=== PATIENT | male | born 1995 | race Caucasian/White ===

== ENCOUNTER → 2018-02-16 | Outpatient (CLI) | payer BC, OTHER ==
[~2018-02-16] VITALS: Ht 185.4 cm; Wt 83.9 kg
[~2018-02-16] MED LIST: ACHD5005 PO; GADOBUTROL 7.5 MMOL/7.5 ML (GADAVIST) VIAL IV ONE; IOHEXOL 300 MG/ML 30 ML (OMNIPAQUE 300) VIAL IV ONE; LIDOCAINE 1% INJ 20 ML 20 ML VIAL INJ ONE; LIDOCAINE 1% INJ 20 ML 20 ML VIAL ONE
[2018-02-16 12:40] VITALS: BP 114/60
[2018-02-16 13:13] VITALS: BP 104/68
--- NOTE | 2018-02-16 13:53 | Diagnostic Imaging Report ---
INDICATION: Right elbow pain. TECHNIQUE: Patient was brought to the procedure room, placed on the table in the prone position. The right elbow was held in 90 degree angle with thumb turned up. The skin of the lateral elbow was prepped and draped in usual sterile fashion. A small amount of 1% lidocaine was utilized for local anesthesia. Radiocapitellar joint was accessed with a 22-gauge needle using fluoroscopic observation. Approximately 10 mL solution of iodinated contrast, normal saline and gadolinium was injected under fluoroscopic observation. The needle was withdrawn and hemostasis was obtained. Total of 1 minute and 6 seconds of fluoroscopy was utilized. The patient tolerated the procedure well and was sent to MRI in satisfactory condition. IMPRESSION: Successful right elbow injection of gadolinium contrast solution for MRI, using fluoroscopy. Dictated by: Dictated on workstation # [id number]
--- NOTE | 2018-02-16 13:58 | Diagnostic Imaging Report ---
PATIENT HISTORY: UCL SPRAIN, injury throwing a javelin on 02/09/2018 with pop in the right elbow. Pain in the right elbow since that time. TECHNIQUE: Multiplanar multisequence MRI examination of the right elbow was performed following intra-articular injection of a gadolinium based contrast mixture. COMPARISON: None. FINDINGS: No acute fracture is seen in the right elbow. The fluid sensitive sequences suboptimal due to decreased signal, but there appears to be mild bone marrow edema at the sublime tubercle of the ulna. Alignment appears normal. The elbow joint is well distended with contrast. There is a complete tear of the ulnar collateral ligament from the ulna (image 8 series 6). The radial collateral ligament and the lateral ulnar collateral ligament appear intact. The triceps and biceps tendon insertions appear normal. The origins of the common flexor and common extensor tendons are unremarkable. There is contrast from recent injection in the lateral soft tissues. The cubital tunnel and ulnar nerve are unremarkable. IMPRESSION: Full-thickness tear at the ulnar attachment of the ulnar collateral ligament in the right elbow. There is mild reactive bone marrow edema at the sublime tubercle. Dictated by: Dictated on workstation # [id number]
== END ==
LOC: RAD 12:29
PROVIDERS: ATTEND Orthopaedic Surgery
DX: S53.441A Ulnar collateral ligament sprain of right elbow, initial encounter (principal)
CPT/HCPCS: 24220; 73085; 73222

== ENCOUNTER 2019-01-23 08:31 | Outpatient (RCR) | payer BC ==
[~2019-01-23 08:31] MED LIST changes: -GADOBUTROL 7.5 MMOL/7.5 ML (GADAVIST) VIAL IV ONE; -IOHEXOL 300 MG/ML 30 ML (OMNIPAQUE 300) VIAL IV ONE; -LIDOCAINE 1% INJ 20 ML 20 ML VIAL INJ ONE; -LIDOCAINE 1% INJ 20 ML 20 ML VIAL ONE
== END 2019-01-23 09:21 | disposition home or self-care (01) ==
DX: M54.2 Cervicalgia (principal)

== ENCOUNTER 2019-03-13 15:11 | Outpatient (RCR) | payer BC | END 2019-04-29 16:14 | disposition home or self-care (01) | DX: M54.5 Low back pain (principal); M79.605 Pain in left leg ==

== ENCOUNTER 2019-08-06 14:27 | Outpatient (RCR) | payer BC | END 2019-09-16 09:19 | disposition home or self-care (01) | PROVIDERS: ATTEND Physical Therapist | DX: R22.2 Localized swelling, mass and lump, trunk (principal); Z98.890 Other specified postprocedural states; Z87.81 Personal history of (healed) traumatic fracture ==